=== PATIENT | female | born 1970 ===

== ENCOUNTER 2020-09-11 06:53 | Day surgery (SDC) | payer OTHER ==
[2020-09-11] MEDS ORDERED: MEGESTROL ACETA40 MG PO (10:22)
== END 2020-09-11 16:25 | disposition home or self-care (01) ==
LOC: CIR.AMB 06:53
PROVIDERS: ATTEND Obstetrics & Gynecology
DX: N92.1 Excessive and frequent menstruation with irregular cycle (principal)